=== PATIENT | male | born 1970 | race African-American/Black ===

== ENCOUNTER 2016-12-22 14:32 | Emergency (ER) | payer SELFPAY ==
[~2016-12-22] VITALS: Ht 172.7 cm; Wt 115.1 kg
[~2016-12-22 14:32] MED LIST: AUGMENTIN875 MG PO; FLEXERIL10 MG PO; LORTAB 5-500 T1 EACH PO; TRAMADOL HCL50 MG PO; VENTOLIN HFA18 GM IH; ZOFRAN4 MG PO
[2016-12-22] MEDS ORDERED: PREDNISONE50 MG PO (18:07)
[2016-12-22 18:09] VITALS: BP 101/73
[2016-12-22] MEDS ORDERED: VENTOLIN HFA18 GM IH (18:10)
== END 2016-12-22 18:37 | disposition home or self-care (01) ==
LOC: EME 14:32
DX: J45.901 Unspecified asthma with (acute) exacerbation (principal); J06.9 Acute upper respiratory infection, unspecified; F17.200 Nicotine dependence, unspecified, uncomplicated
CPT/HCPCS: 71020; 93005; 94640; 99281; 99283; J7512

== ENCOUNTER 2017-07-02 18:26 | Emergency (ER) | payer SELFPAY ==
[~2017-07-02] VITALS: Ht 172.7 cm; Wt 109.8 kg
[~2017-07-02 18:26] MED LIST changes: +PREDNISONE50 MG PO
[2017-07-02 20:40] LABS: HEMATOCRIT 44.6 % (38.0-50.0); MCH 29.4 PG (29.0-34.0); MCHC 34.8 G/DL (30.0-36.0); MCV 84.6 FL (86-99); MEAN PLAT.VOLUME 9.9 uM^3 (9.0-12.4); PLATELET COUNT 241 K/uL (156-360); RBC DIS.WIDTH-CV 12.1 % (11.8-14.6); RBC DIS.WIDTH-SD 36.9 % (39-53); RED BLOOD COUNT 5.27 M/uL (4.00-5.50); WHITE BLOOD COUNT 12.9 K/uL (4.1-10.2)
[2017-07-02 20:50] LABS: CHLORIDE 106 mEq/L (99-109); POTASSIUM 3.9 mEq/L (3.7-5.4); SODIUM 142 mEq/L (136-147)
[2017-07-02 20:52] LABS: GLUCOSE 97 mg/dL (70-99)
[2017-07-02 20:53] LABS: ANION GAP 14 MEQ/L (2-14)
[2017-07-02 20:54] LABS: TOTAL BILIRUBIN 0.3 mg/dL (0.0-1.0)
[2017-07-02 20:55] LABS: ALKALINE PHOSPHATASE 88 IU/L (3-129)
[2017-07-02 20:56] LABS: GFR ESTIMATE (CALCULATED) > 59 mL/min/
[2017-07-02 20:57] LABS: UREA NITROGEN (BUN) 21 mg/dL (9-23)
[2017-07-02 20:59] LABS: LIPASE 109 U/L (1.0-51.0)
[2017-07-02 22:23] LABS: ADD MIUA? YES; BILIRUBIN NEGATIVE; BLOOD NEGATIVE; COLOR YELLOW ((YELLOW)); GLUCOSE (STRIP) NEGATIVE; KETONES NEGATIVE; LEUKOCYTES SMALL; NITRITE NEGATIVE; PROTEIN (STRIP) NEGATIVE; SPECIFIC GRAVITY 1.026 (1.000-1.030); UROBILINOGEN 0.2 MG/DL (0.2-1.0)
[2017-07-02 22:30] LABS: BACTERIA RARE /HPF; EPITHELIAL CELLS RARE /HPF; MUCUS TRACE /LPF; RED BLOOD CELLS 0-5 /HPF (0-5); UCUL ADDED? YES
[2017-07-03] MEDS ORDERED: CIPRO500 MG PO (01:55)
[2017-07-03] MEDS ORDERED: BENTYL20 MG PO (01:55)
[2017-07-03 02:43] VITALS: BP 132/87
== END 2017-07-03 02:44 | disposition home or self-care (01) ==
LOC: EME 18:26
DX: I88.0 Nonspecific mesenteric lymphadenitis (principal); N39.0 Urinary tract infection, site not specified; R36.1 Hematospermia; K76.89 Other specified diseases of liver; J45.909 Unspecified asthma, uncomplicated; F17.200 Nicotine dependence, unspecified, uncomplicated
CPT/HCPCS: 74177; 76870; 80053; 81003; 83690; 85027; 87086; 99281; 99284; J1885; J7030

== ENCOUNTER → 2017-10-25 | Outpatient (CLI) | payer BC ==
[~2017-10-25] VITALS: Ht 172.7 cm; Wt 110.2 kg
[~2017-10-25] MED LIST changes: +ADVAIR HFA120 INHALA IH; +BENTYL20 MG PO; +CIPRO500 MG PO; +PRILOSEC20 MG PO
[2017-10-25 10:48] LABS: ALBUMIN 4.7 G/DL (3.2-4.8); ALKALINE PHOSPHATASE 64 IU/L (3-129); ALT (GPT) 31 IU/L (3-49); AST (GOT) 23 IU/L (2-34); CHLORIDE 105 MEQ/L (99-109); GFR ESTIMATE (CALCULATED) > 59 mL/min/ (58.99-99999); GLUCOSE 101 mg/dL (70-99); POTASSIUM 4.2 MEQ/L (3.7-5.4); SODIUM 138 MEQ/L (136-147); TOTAL BILIRUBIN 0.6 MG/DL (0.0-1.0); TOTAL PROTEIN 7.8 G/DL (6.4-8.3); UREA NITROGEN (BUN) 23 mg/dL (9-23)
== END | disposition home or self-care (01) ==
LOC: AMB 09:19
PROVIDERS: Anesthesiology
PROC: 0DJ08ZZ Inspection of Upper Intestinal Tract, Via Natural or Artificial Opening Endoscopic (ICD-10-PCS; principal; 2017-10-25)
DX: K21.9 Gastro-esophageal reflux disease without esophagitis (principal); K76.0 Fatty (change of) liver, not elsewhere classified; J45.20 Mild intermittent asthma, uncomplicated; E66.9 Obesity, unspecified; Z68.36 Body mass index [BMI] 36.0-36.9, adult; F10.10 Alcohol abuse, uncomplicated; F17.200 Nicotine dependence, unspecified, uncomplicated
CPT/HCPCS: 80048; 80053; J2250; J3010

== ENCOUNTER 2018-02-03 14:26 | Emergency (ER) | payer BC ==
[~2018-02-03] VITALS: Ht 177.8 cm; Wt 117.4 kg
[2018-02-03 15:50] VITALS: BP 155/75
== END 2018-02-03 15:51 | disposition home or self-care (01) ==
LOC: EME 14:26
DX: S50.811A Abrasion of right forearm, initial encounter (principal); W22.8XXA Striking against or struck by other objects, initial encounter; K21.9 Gastro-esophageal reflux disease without esophagitis; J45.909 Unspecified asthma, uncomplicated; F17.200 Nicotine dependence, unspecified, uncomplicated
CPT/HCPCS: 73090; 99281; 99283